=== PATIENT | female | born 1970 | race Caucasian/White ===

== ENCOUNTER 2024-10-05 08:33 | Day surgery (SDC) | payer OTHER ==
[2024-10-02 15:45] LABS: Absolute Basophils 0.1 K/uL (0-0.5); Absolute Eosinophils 0.2 K/uL (0-0.5); Absolute Lymphocytes (CBC) 3.4 K/uL (0.7-4.9); Absolute Monocytes 0.9 K/uL (0.1-1.3); Absolute Neutrophil 6.8 K/uL (1.8-8.0); Basophils % 0.9 % (0-1.3); Hematocrit 43.5 % (36.0-45.0); Lymphocytes % 29.6 % (15.3-44.8); MCH 30.3 pg (27.0-35.0); MCHC 34.4 g/dL (32.0-36.0); MCV 87.9 fL (80-100); MPV 8.2 fL (7.6-11.3); Monocytes % 8.1 % (3.3-12.3); Neutrophils % 59.4 % (41.7-73.7); Nucleated Red Blood Cells % 0.1 % (0-0); Platelets 311 thou/uL (152-406); RBC Red Blood Cell Count 4.95 M/uL (3.86-4.86); Red Cell Distribution Width 13.7 % (12.1-15.2)
--- NOTE | 2024-10-02 15:45 | RAD REPORT ---
Procedure: Chest Pa And Lat (2 Views) HISTORY: Preop for cardiac catheterization COMPARISON: 2016 FINDINGS: The lungs appear clear of acute infiltrate. No significant pleural effusion noted. The heart is normal size. IMPRESSION: No acute abnormality is displayed.
[2024-10-02 15:59] LABS: Anion Gap 5.5 mEq/L (5.0-15.0); Potassium 4.5 mEq/L (3.5-5.1)
[2024-10-02 16:20] LABS: PT Prothrombin Time 10.4 SECONDS (9.4-12.5); Protime INR 0.93
[~2024-10-05 08:33] MED LIST: NA CHLORIDE 0.9% 500 ML ONE
[2024-10-05] MEDS ORDERED: LIDOCAINE 1% 20 ML MDV ONE (08:37)
[2024-10-05] MEDS ORDERED: MIDAZOLAM HCL 2 MG/2 ML INJ ONE (08:37)
[2024-10-05] MEDS ORDERED: ATROPINE SULF 1 MG/10 ML SYR IV ONE (08:37)
[2024-10-05] MEDS ORDERED: HEPARIN 10,000 UNIT/10 ML VIAL IV ONE (08:37)
[2024-10-05] MEDS ORDERED: HEPA 1000U/500MLS 2,000 UNIT/1,000 ML BAG IV ONE (08:37)
[2024-10-05] MEDS ORDERED: FENTANYL CITR 100 MCG/2 ML ONE (08:38)
[2024-10-05] MEDS ORDERED: TICAGRELOR 90 MG TABLET PO ONE (08:38)
[2024-10-05] MEDS ORDERED: ASPIRIN 325 MG TAB ONE (08:38)
[2024-10-05] MEDS ORDERED: CLOPIDOGREL 75 MG TABLET ONE (08:38)
[2024-10-05] MEDS ORDERED: HEPARIN 5000 UNIT/ML 1 ML VIAL ONE (08:38)
[2024-10-05 08:41] VITALS: TEMP 97
[2024-10-05 13:10] VITALS: BP 101/60; O2SAT 97
--- NOTE | 2024-10-06 00:43 | OP ---
Date of Procedure: 10/05/2024 Surgeon: Jonathan Larsen Procedures Performed: 1.Left heart catheterization. 2.Selective coronary angiogram. 3.PCI of the RCA with Synergy 4.0 x 38 mm drug-eluting stent. Indication For Procedure: Chest pain, abnormal stress test. Complications: None. Estimated Blood Loss: Less than 50 cc. Access: Right radial, closed by TR band. Sedation Time: 30 minutes with 2 of Versed and 50 of fentanyl. Description Of Procedure: After risks, benefits, and alternatives were explained to the patient, the patient agreed to proceed with the procedure and signed informed consent. The patient was [facility] b the [facility] to the label sewer, prepped and draped in sterile fashion. Time-out was performed. Sedation was ad ministered. Next, the right radial access was obtained using an ultrasound-guided micropuncture tech nique. Nebo 4 catheter was advanced over the J-wire to the LV cavity. LVEDP was obtained. Pullbac k did not show any gradient. Same catheter was used for selective angiogram of the left and right co ronary systems. Later on, that catheter was exchanged for a JR4 guide. Heparin was administered. A CT was therapeutic. Runthrough wire was passed across the lesion, pre-dilated the lesion with an NC 3.5 mm balloon. Next, Synergy 4.0 x 38 mm drug-eluting stent was placed to close the lesion that is postdilated with an NC 4.5 mm balloon. Final angiogram shows EMILY-3 flow. Wire was removed, cathete r was removed over a J-wire. Sheath was removed. TR band was applied. Hemostasis was achieved and patient was moved back to Recovery in stable condition. Findings: 1.Left main normal. 2.LAD, proximal, mild luminal irregularities, mid 60% disease at the origin of large diagonal and it continues as small diffuse mild luminal irregularities. 3.Diagonal 1 large, mild luminal irregularities. 4.Left circ, small, mild luminal irregularities. 5.RCA, large dominant with mid diffuse 50% to 80% disease, status post PCI. Distal mild luminal irr egularities. 6.RPDA, RPLV, mild luminal irregularities. 7.LVEDP 2 mmHg. Assessment: 1.Significant mid RCA disease, status post PCI with Synergy 4.0 x 38 mm drug-eluting stent. 2.Moderate mid LAD disease, which is diffuse, small artery. Plan: 1.Aspirin 81 mg daily for life. 2.Brilinta 180 x1 was given in the label sewer, we will load with Plavix before discharge and continue Plavix 75 mg daily. ALEXIS/EDILIA Voice ID: [id number] Report ID: [id number]
--- NOTE | 2024-10-06 10:08 | EKG ---
Test Date: 2024-10-02 Test Time: 16:24:42 [employer] Manager: BYRON MEASUREMENT RESULTS: Intervals: Rate: 73 MS: 152 QRSD: 84 QT: 364 QTc: 401 [place]: P: 61 MS: 152 QRS: 34 T: 32 INTERPRETIVE STATEMENTS: Normal sinus rhythm Normal ECG No previous ECG available for comparison Electronically Signed On 10-06-24 10:06:46 LINING SCRUBBER by Jonathan Larsen
== END 2024-10-05 12:30 | disposition home or self-care (01) ==
LOC: CCL 08:33
PROVIDERS: ADMIT Internal Medicine; ATTEND Internal Medicine Interventional Cardiology
DX: I25.110 Atherosclerotic heart disease of native coronary artery with unstable angina pectoris (principal); I10 Essential (primary) hypertension; E78.2 Mixed hyperlipidemia; Z79.899 Other long term (current) drug therapy
CPT/HCPCS: 93005; 85025; 80048; 36415; 85610; 85730; 71046; 92928; 93458; 76937; C1893; Q9967; C1725; J1644; J2003; J2250; J3010; J7040; 99152; 99153; J0461

== ENCOUNTER 2025-01-07 13:07 | Emergency (ER) | payer OTHER ==
--- OUTSIDE RECORDS SUMMARY | 2025-01-07 13:10 | XMS REPORT | Continuity of Care Document ---
Author Name Unknown Address [address] [facility] [address] [place] [id number] [facility] thconnect Address [address] [facility] 1 [address] [place] [address] Care Team Providers Care Pairer Odds Name Role Phone PCP, PATIENT DOES NOT HAVE A Primary Care Physic dahlia Unavailable Vic, Generic Provider Attending Clinician Unavailable Barb Moran RN Attending Clinician Unavailable RICARDO ABRAMS Attending Clinician Unavailable Emma Juan Attending Clinician [phone] Ricardo Abrams DO Attending Clinician [phone] Annita Lira MD Attending Clinician [phone] JOSE ALBERTO ALBERT Attending Clinician Unavailable JOSE ALBERTO ALBERT Attending Clinician Unavailable ANNITA LIRA Admitting Clinician Unavailable Annita Lira MD Admitting Clinician [phone] JOSE ALBERTO ALBERT Admitting Clinician Unavailable Payers Payer Name Policy Type Policy Number Effective Date Expirati on Date Source Problems Condition Name Condition Details Condition Category Status Onset Date Resolution Date Last Treatment Date Treating Clinician Comments Source Sepsis, due to unspecifie d organism, unspecifie d whether acute organ dysfunctio n present Sepsis, due to unspecifie d organism, unspecifie d whether acute organ dysfunctio n present Disease Active 05-23 00:00: 00 [facility] Obesity (BMI 30-39.9) Obesity (BMI 30-39.9) Disease Active 05-23 00:00: 00 [facility] Allergies, Adverse Reactions, Alerts Allergy Name Allergy Type Status Severity Reaction(s) Onset Date Inactive Date Treating Clinician Comments Source NO KNOWN ALLERGIE S Drug Class Active [facility] Social History Social Habit Start Date Stop Date Quantity Comments [facility] 2024-05-25 00:00:00 2024-05-25 00:00:00 [facility] Sex assigned at 1970 00:00:00 1970 00:00:00 [facility] Smoking Status Start Date Stop Date Source Tobacco smoking consumption unknown [facility] Medications Ordered Medication Name Filled Medication Name Start Date Stop Date Current Medication? Ordering Clinician Indication Dosage Frequency Signature (SIG) Comments Components Source HYDROcodone -acetaminop hen 10-325 mg tablet 05-25 13:22: 48 Yes 1{tbl} Take 1 tablet by mouth every 6 (six) hours as needed. [facility] baclofen 5 mg tablet 05-25 13:22: 48 Yes 10mg Take 2 tablets by mouth in the morning and 2 tablets in the evening. [facility] vitamin C with althea hips (VITAMIN C) 1,000 mg tablet 05-25 13:22: 48 Yes 1000mg Take 1 tablet by mouth in the morning. [facility] montelukast 10 mg tablet 05-25 13:22: 48 Yes 10mg Take 1 tablet by mouth in the morning. [facility] cholecalcif jazmyne, vitamin D3, (VITAMIN D3 ORAL) 05-25 13:22: 48 05-25 00:00 :00 No 20mg Take by mouth daily. [facility] hydroCHLORO thiazide 25 mg tablet 05-25 11:36: 11 05-25 00:00 :00 No 25mg Take 1 tablet by mouth in the morning. [facility] atorvastati n 20 mg tablet 05-25 00:00: 00 06-25 04:59 :00 No [id number] 20mg Take 1 tablet by mouth at bedtime for 30 days. [facility] DULoxetine 60 mg capsule 05-25 00:00: 00 06-25 04:59 :00 No [id number] 60mg Take 1 capsule by mouth in the morning for 30 days. [facility] HYDROcodone -acetaminop hen 10-325 mg tablet 05-25 00:00: 00 06-02 04:59 :00 No [id number] 1{tbl} Take 1 tablet by mouth every 6 (six) hours as needed for Pain (scale 7-10) for up to 7 days. Indication s: acute pain [facility] levoFLOXaci n 750 mg tablet 05-25 00:00: 00 05-30 04:59 :00 No [id number] 750mg Take 1 tablet by mouth every 24 (twenty-fo ur) hours for 4 days. [facility] HYDROcodone -acetaminop hen (NORCO) 10-325 mg tablet 1 tablet 05-24 20:16: 47 Yes 1{tbl} 1 tablet, Oral, Q6HPRN, Starting on Sat05/24/24 at 1516, Until Discontinu ed, Routine, Pain (scale 7-10) [facility] loperamide (IMODIUM A-D) capsule 2 mg 05-24 15:42: 31 Yes 2mg 2 mg, Oral, Q4HPRN, Starting on Sat05/24/24 at 1042, Until Discontinu ed, Routine, Diarrhea [facility] azithromyci n (ZITHROMAX) 500 mg in NaCl 0.9% (NS) 250 mL VIAL-MATE IV piggyback 05-24 05:30: 00 05-25 05:43 :00 No 500mg 500 mg, IV Piggyback, Q24H ABX, 2 doses, First dose (after last reorder) on Sat05/24/24 at 0030, Last dose on Sat05/25/24 at 0030, Administer over 60 Minutes, 250 mL, Reason for Anti-Infec tive: Documented Infection, Documented Infection Site: Respirator y, Duration of Therapy: Once (ED) [facility] cefTRIAXone (ROCEPHIN) 1,000 mg in NaCl 0.9% (NS) 100 mL MINI-BAG 05-24 04:00: 00 05-29 03:59 :00 No 1000mg 1,000 mg, IV Piggyback, Q24H ABX, 5 doses, First dose (after last reorder) on Sat05/23/24 at 2300, Last dose on Sat05/27/24 at 2300, Administer over 30 Minutes, 100 mL, Reason for Anti-Infec tive: Empiric Therapy for Suspected Infection, Empiric Therapy Site: Urine, Duration of therapy: Once (ED) [facility] atorvastati n (LIPITOR) tablet 20 mg 05-24 02:00: 00 Yes 20mg 20 mg, Oral, QHS, First dose on 05/23/24 at 2100, Until Discontinu ed [facility] enoxaparin (LOVENOX) injection 40 mg 05-23 22:00: 00 Yes 40mg 40 mg, Subcutaneo us, DAILY, First dose on Sat05/23/24 at 1700, Until Discontinu ed, Routine [facility] ondansetron (ZOFRAN (PF)) injection 4 mg 05-23 19:41: 40 Yes 4mg 4 mg, Slow IV Push, Q6HPRN, Nausea and Vomiting (N/V), Starting on Sat05/23/24 at 1441, Doses of ondansetro n 16 mg and above need to be administer ed via IV piggyback. For Dose >=24mg ECG monitoring is advisable. [facility] acetaminoph en (TYLENOL) tablet 1,000 mg 05-23 19:09: 44 Yes 1000mg 1,000 mg, Oral, Q8HPRN, Starting on Sat05/23/24 at 1409, Until Discontinu ed, Routine, Pain (scale 1-3), Temp > 38 C [facility] DULoxetine (CYMBALTA) capsule 60 mg 05-23 14:00: 00 Yes 60mg 60 mg, Oral, DAILY, First dose on Sat05/23/24 at 0900, Until Discontinu ed [facility] midodrine (PROAMATINE ) tablet 10 mg 05-23 13:44: 43 05-24 20:38 :05 No 10mg 10 mg, Oral, TID, First dose on 05/23/24 at 1400, Until Discontinu ed, Routine [facility] NaCl 0.9% (NS) IV infusion 1,000 mL 05-23 12:45: 00 05-24 15:44 :04 No 1000mL at 125 mL/hr, IV Infusion, CONTINUOUS , Starting on 05/23/24 at 0745, Until 05/24/24 at 1044, Routine [facility] KCL (KLOR-CON M20) tablet 40 mEq 05-23 12:15: 00 05-23 11:24 :00 No 40meq 40 mEq, Oral, ONCE, 1 dose, On 05/23/24 at 0715, Routine [facility] NaCl 0.9% (NS) IV infusion 1,000 mL 05-23 12:15: 00 05-23 12:38 :23 No 1000mL at 125 mL/hr, IV Infusion, CONTINUOUS , Starting on 05/23/24 at 0715, Until 05/23/24 at 0738, Routine [facility] NaCl 0.9% (NS) bolus infusion 1,000 mL 05-23 07:00: 00 05-23 11:51 :00 No 1000mL at 999 mL/hr, 1,000 mL, IV Infusion, ONCE, 1 dose, On 05/23/24 at 0200, STAT [facility] ipratropium -albuteroL (DUONEB) 0.5 mg-3 mg(2.5 mg base)/3 mL nebulizer solution 3 mL 05-23 06:15: 00 05-23 05:24 :00 No 3mL 3 mL, Inhalation , ONCE, 1 dose, On 05/23/24 at 0115, Routine [facility] acetaminoph en (TYLENOL) tablet 1,000 mg 05-23 06:00: 00 05-23 05:57 :00 No 1000mg 1,000 mg, Oral, ONCE, 1 dose, On 05/23/24 at 0100, Routine [facility] KCL (KLOR-CON M20) tablet 40 mEq 05-23 05:30: 00 05-23 05:03 :00 No 40meq 40 mEq, Oral, ONCE, 1 dose, On Sat05/23/24 at 0030, Routine [facility] azithromyci n (ZITHROMAX) 500 mg in NaCl 0.9% (NS) 250 mL VIAL-MATE IV piggyback 05-23 05:15: 00 05-23 06:33 :00 No 500mg 500 mg, IV Piggyback, ONCE, 1 dose, On Sat05/23/24 at 0015, Administer over 60 Minutes, 250 mL, Reason for Anti-Infec tive: Documented Infection, Documented Infection Site: Respirator y, Duration of Therapy: Once (ED) [facility] NaCl 0.9% (NS) bolus infusion 1,000 mL 05-23 05:00: 00 05-23 11:50 :00 No 1000mL at 999 mL/hr, 1,000 mL, IV Infusion, ONCE, 1 dose, On Sat05/23/24 at 0000, STAT [facility] ibuprofen (IBU) tablet 800 mg 05-23 04:00: 00 05-23 04:24 :00 No 800mg 800 mg, Oral, ONCE, 1 dose, On Sat05/22/24 at 2300, JENN [facility] NaCl 0.9% (NS) bolus infusion 1,000 mL 05-23 04:00: 00 05-23 06:00 :00 No 1000mL at 999 mL/hr, 1,000 mL, IV Infusion, ONCE, 1 dose, On Sat05/22/24 at 2300, STAT [facility] cefTRIAXone (ROCEPHIN) 1,000 mg in NaCl 0.9% (NS) 100 mL MINI-BAG 05-23 03:15: 00 05-23 05:30 :00 No 1000mg 1,000 mg, IV Piggyback, ONCE, 1 dose, On Sat05/22/24 at 2215, Administer over 30 Minutes, 100 mL, Reason for Anti-Infec tive: Empiric Therapy for Suspected Infection, Empiric Therapy Site: Urine, Duration of therapy: Once (ED) [facility] HYDROcodone -acetaminop hen (NORCO) 10-325 mg tablet 1 tablet 05-20 16:30: 00 05-20 16:12 :00 No 1{tbl} 1 tablet, Oral, ONCE, 1 dose, On Sat05/20/24 at 1130, Routine [facility] Vital Signs Vital Name Observation Time Observation Value Comments S ource Systolic blood pressure 2024-05-25 17:02:00 127 mm[Hg] [facility] Diastolic blood pressure 2024-05-25 17:02:00 99 mm[Hg] [facility] Body temperature 2024-05-25 17:02:00 36.72 [facility] Oxygen saturation in Arterial blood by Pulse oximetry 2024-05-25 13:00:00 92 /min [facility] Heart rate 2024-05-25 13:00:00 89 /min [facility] Respiratory rate 2024-05-25 13:00:00 20 /min [facility] Body weight 2024-05-25 09:00:00 94.983 kg [facility] BMI 2024-05-25 09:00:00 33.80 kg/m2 [facility] Body height 2024-05-23 14:33:00 167.6 cm [facility] Systolic blood pressure 2024-05-20 15:14:00 113 mm[Hg] [facility] Diastolic blood pressure 2024-05-20 15:14:00 74 mm[Hg] [facility] Heart rate 2024-05-20 15:14:00 124 /min [facility] Body temperature 2024-05-20 15:14:00 37.61 [facility] Body height 2024-05-20 15:14:00 160 cm [facility] Body weight 2024-05-20 15:14:00 95.709 kg [facility] BMI 2024-05-20 15:14:00 37.38 kg/m2 [facility] Oxygen saturation in Arterial blood by Pulse oximetry 2024-05-20 15:14:00 94 /min [facility] Procedures Procedure Date / Time Performed Performing Clinician Source BASIC METABOLIC PANEL (NA, K, CL, CO2, GLUCOSE, BUN, CREATININE, CA) 2024-05-25 14:28:00 Ricardo Abrams [facility] CBC WITH DIFF 2024-05-25 14:28:00 Ricardo Abrams [facility] CORTISOL AM 2024-05-23 14:12:00 Ricardo Abrams [facility] PROCALCITONIN 2024-05-23 14:12:00 Ricardo Abrams [facility] LACTIC ACID WHOLE BLOOD 2024-05-23 07:29:00 Emma Gallardo [facility] THYROID STIMULATING HORMONE 2024-05-23 07:28:00 Ricardo Abrams [facility] BASIC METABOLIC PANEL (NA, K, CL, CO2, GLUCOSE, BUN, CREATININE, CA) 2024-05-23 07:28:00 Damaso [facility] CBC WITH DIFF 2024-05-23 07:28:00 [facility] MRSA / MSSA SCREEN BY PCRTRAVIS 2024-05-23 06:57:00 Damaso [facility] HB ECG ROUTINE & RHYTHM STRIP 2024-05-23 04:34:07 Emma Gallardo [facility] XR CHEST 1 VW 2024-05-23 04:15:00 Emma Gallardo [facility] LACTIC ACID WHOLE BLOOD 2024-05-23 03:44:00 Emma [facility]ardo [facility] BLOOD CULTURE SCREEN 2024-05-23 03:43:00 Emma Gallardo [facility] TROPONIN I 2024-05-23 03:41:00 Emma Gallardo [facility] COMP. METABOLIC PANEL ([id number]) 2024-05-23 03:41:00 Emma Gallardo [facility] CBC WITH DIFF 2024-05-23 03:41:00 Emma Gallardo [facility] THROAT CULTURE 2024-05-23 03:41:00 Emma Gallardo [facility] RAPID STREP SCREEN FOR GROUP A 2024-05-23 03:41:00 Emma Gallardo [facility] INFLUENZA A/B RSV COVID NAAT 2024-05-23 03:41:00 Emma Gallardo [facility] LAB ONLY COVID INTERPRETATION 2024-05-23 03:41:00 Emma Gallardo [facility] BLOOD CULTURE SCREEN 2024-05-23 03:28:00 Emma Gallardo [facility] URINALYSIS 2024-05-23 03:27:00 Emma Gallardo [facility] URINE CULTURE 2024-05-23 03:27:00 Emma Gallardo [facility] COMP. METABOLIC PANEL ([id number]) 2024-05-20 16:08:00 Singer [facility] CBC WITH DIFF 2024-05-20 16:08:[facility]AST 2024-05-20 15:42:46 Helix [facility] Encounters Start Date/Time End Date/Time Encounter Type Admission Type Attending Clinicians Care Facility Care Department Encounter ID Source 2024-05-27 00:00:00 2024-05-27 11:23:01 Letter (Out) Campaigns, Generic Provider [facility] 1..840.114 [id number] [id number] [id number] [facility] 2024-05-26 00:00:00 2024-05-26 10:31:27 Transition of Care Barb Moran 1..840.114 350.1.13.10 [id number] [id number] [facility] 2024-05-22 21:54:00 2024-05-25 13:06:00 Inpatient X RICARDO ABRAMS [facility] [id number] [facility] 2024-05-22 21:54:00 2024-05-25 13:06:00 Hospital Encounter Emma Gallardojuwan Abrams, Ricardo LiraAnnita [facility] [id number] [id number] [id number] [facility] 2024-05-20 10:18:00 2024-05-20 14:00:00 Emergency X JOSE ALBERTO ALBERT, [facility] ERT [id number] [facility] 2024-05-20 10:18:00 2024-05-20 14:00:00 Emergency Jose Alberto Albert [facility] 1..840.114 [id number] [id number] [id number] [facility] Results Test Description Test Time Test Comments Results Result Co mments Source [facility]2024-07-13 19:33:43* Test Item Value Reference Range Interpretation Comme nts Procalcitonin (test code = 8493106934) 4.51 ng/mL <=0.07 H STEPHON (test code = STEPHON) INTERPRETATION OF PROCALCITONIN RESULTS IN ADULTS >= 18 YEARS OF AGE Initiation and discontinuation of antibiotics on patients with suspected or confirmed Lower Respiratory Tract Infection in Adults >= 18 years of age. + +-------- --------+ + -----+|Procalcitonin |Interpretation ?|Antibiotic ? ? |Considerations ? |ng/mL ? | ?|recommendation | ? + +-------- --------+ + -----+| <0.1 ? | Bacterial ? ? ?| Strongly ? ? ?| ? | ?| infection very | discouraged ? | Overruling: ? | ?| unlikely ? ? ? | ? | ? Clinically unstable ? ? ? + +-------- --------+ + ? High risk for adverse ? ? | <0.25 ?| Bacterial ? ? ?| Discouraged ? | ? outcome ? | ?| infection ? ? ?| ? | ? SEE IMPORTANT NOTE ?| ?| unlikely ? ? ? | ? | ? + +-------- --------+ + -----+| >=0.25 ? ? ? | Bacterial ? ? ?| Encouraged ? ?| ? | ?| infection ? ? ?| ? | ? | ?| likely ? | ? | Consider treatment failure ?+ +------- ---------+ -+ if levels does not decrease | >0.5 ? | Bacterial ? ? ?| Strongly ? ? ?| appropriately ? | ?| infection very | encouraged ? ?| ? | ?| likely ? | ? | ? + +-------- --------+ + -----+ Discontinuation of antibiotics in high-acuity patients with suspected or confirmed sepsis in Adults >= 18 years of age. + +-------- --------+ + -----+|Procalcitonin |Interpretation ?|Antibiotic ? ? |Considerations ? |ng/mL ? | ?|recommendation | ? + +-------- --------+ + -----+| <0.25 ?| Bacterial ? ? ?| Strongly ? ? ?| ? | ?| infection very | discouraged ? | Overruling: ? | ?| unlikely ? ? ? | ? | ? Clinically unstable ? ? ? + +-------- --------+ + ? High risk for adverse ? ? | <0.5 or drop | Bacterial ? ? ?| Discouraged ? | ? outcome ? | >80% from ? ?| infection ? ? ?| ? | ? SEE IMPORTANT NOTE ?| highest PCT ?| unlikely ? ? ? | ? | ? | level ?| ?| ? | ? + +-------- --------+ + -----+| >=0.5 ?| Bacterial ? ? ?| Encouraged ? ?| ? | ?| infection ? ? ?| ? | ? | ?| likely ? | ? | Consider treatment failure ?+ +------- ---------+ -+ if levels does not decrease | >1.0 ? | Bacterial ? ? ?| Strongly ? ? ?| appropriately ? | ?| infection very | encouraged ? ?| ? | ?| likely ? | ? | ? + +-------- --------+ + -----+ Percentage of drop of Procalcitonin calculation for Discontinuation of antibiotics in high-acuity patients with suspected or confirmed sepsis in Adults >= 18 years of age. ? Procalcitonin highest{}-Procalcitonin current{}Delta Procalcitonin = x100% ? Procalcitonin current {} IMPORTANT NOTE: Procalcitonin may be elevated without bacterial infection by physiologic stress related to trauma, echavarria, chronic dialysis, metastatic cancer, surgery in the past seven days, malaria, some fungal infections, and some forms of vasculitis. The interpretation algorithm may not apply to patients with immunosuppression (equivalent of >10 mg of prednisone daily), HIV with CD4 cell count < 350 cells/mm3, active malignancy on systemic chemotherapy, solid organ transplant or hematopoietic stem cell transplantation, or hospital acquired pneumonia. Additionally, some clinical trials of procalcitonin have excluded patients with shock requiring vasopressor use, acute respiratory failure requiring mechanical ventilation, or those with known lung abscess/empyema. For further information please refer to:[email or web address] Lab Interpretation (test code = 80918-5) [facility] HospitalThyroid Stimulating [id number] 15:33:06 * Test Item Value Reference Range Interpretation Comme nts TSH (test code = 5137152355) 0.91 0.45-4.70 Biotin has been reported to cause a negative bias, interpret results relative to patient's use of biotin. Lab Interpretation (test code = 20482-7) [facility] with [id number] 08:47:48* Test Item Value Reference Range Interpretation Comme nts WBC (test code = 6690-2) 35.14 4.30-11.10 H RBC (test code = 789-8) 3.81 3.93-5.25 L HGB (test code = 718-7) 11.6 g/dL 11.6-15.0 HCT (test code = 4544-3) 34.0 % 35.7-45.2 L MCV (test code = 787-2) 89.2 fL 80.6-95.5 MCH (test code = 785-6) 30.4 pg 25.9-32.8 MCHC (test code = 786-4) 34.1 g/dL 31.6-35.1 RDW-SD (test code = 29305-3) 45.2 fL 39.0-49.9 RDW-CV (test code = 788-0) 13.8 % 12.0-15.5 PLT (test code = 777-3) 199 166-358 MPV (test code = 34309-0) 11.5 fL 9.5-12.9 NRBC/100 WBC (test code = 3636025459) 0.0 0.0-10.0 NRBC x10^3 (test code = 0537373803) See_Comment [Automated message] The system which generated this result transmitted reference range: 10*3/?L. The reference range was not used to interpret this result as normal/abnormal. SEG % (test code = 73606-5) 66 % 33-76 BAND % (test code = 27003-6) 18 % 0-1 H LYMPH % (test code = 61424-0) 4 % 14-54 L REACT LYMPH % (test code = 4896729217) 2 % MONO % (test code = 91167-4) 10 % 0-4 H ANC (test code = 753-4) 29.52 10*3/uL 1.88-7.09 H PLT ESTIMATE (test code = 9317-9) Normal Normal Lab Interpretation (test code = 74268-1) Abnormal [facility] Metabolic Panel (NA, K, CL, CO2, Glucose, BUN, Creatinine, CA)2024-05-23 08:30:00* Test Item Value Reference Range Interpretation Comme nts NA (test code = 1161129557) 134 mmol/L 135-145 L K (test code = 4725885834) 3.2 mmol/L 3.5-5.0 L CL (test code = 9746973704) 106 mmol/L 98-108 CO2 TOTAL (test code = 4645949211) 23 mmol/L 23-31 AGAP (test code = 4063594095) 5 2-16 BUN (test code = 6984783069) 17 mg/dL 7-23 GLUCOSE (test code = 5006098982) 128 mg/dL 70-110 H CREATININE (test code = 2160-0) 0.58 mg/dL 0.50-1.04 CALCIUM (test code = 6494913979) 7.7 mg/dL 8.6-10.6 L eGFR (test code = 06872-7) 107.0 mL/min/1.73m2 CKD-EPI eGFR (2020). Assuming creatinine has been stable day-to-day for at least three months, the eGFR indicates Category G1 (>= 90 mL/min/1.73 m2) Lab Interpretation (test code = 58300-9) [facility] HospitalLactic Acid Whole [id number] 07:39:11* Test Item Value Reference Range Interpretation Comme nts LACTIC ACID (test code = 2087780248) 1.56 mmol/L 0.50-2.20 Lab Interpretation (test cod e = 67519-5) [facility] HospitalTroponin [id number] 05:20:52* Test Item Value Reference Range Interpretation Comme nts TROPONIN I (test code = 6785702499) 0.003 ng/mL <=0.034 STEPHON (test code = STEPHON) Reference (Normal) Range (defined by the 99th percentile reference limit): <= 0.034 ng/mL Note: Cardiac troponin begins to rise 3-4 hours after the onset of ischemia. Repeat in 4-6 hours if the sample was drawn within 3-4 hours of the onset of the symptom and found normal. Diagnosis of myocardial injury is made with acute changes in cTn concentrations with at least one serial sample above the 99th percentile upper reference limit (URL), taken together with the patient's clinical presentation. Biotin has been reported to cause a negative bias, interpret results relative to patient's use of biotin. Lab Interpretation (test code = 99449-2) [facility] HospitalXR CHEST 1 [id number] 05:15:16Ordering physician: Emma GALLARDO Indication: Fever Comparison: None Technical quality: Adequate Findings: Single AP view of the chest. The cardiopericardial silhouette ismoderately enlarged. There is hazy opacity at the right lung base with asmall right pleural effusion. The visualized bony thorax is intact.[facility] HospitalCb with [id number] 04:52:10* Test Item Value Reference Range Interpretation Comme nts WBC (test code = 6690-2) 34.70 4.30-11.10 H RBC (test code = 789-8) 4.80 3.93-5.25 HGB (test code = 718-7) 14.5 g/dL 11.6-15.0 HCT (test code = 4544-3) 42.4 % 35.7-45.2 MCV (test code = 787-2) 88.3 fL 80.6-95.5 MCH (test code = 785-6) 30.2 pg 25.9-32.8 MCHC (test code = 786-4) 34.2 g/dL 31.6-35.1 RDW-SD (test code = 06414-6) 44.2 fL 39.0-49.9 RDW-CV (test code = 788-0) 13.6 % 12.0-15.5 PLT (test code = 777-3) 230 166-358 MPV (test code = 19245-0) 10.9 fL 9.5-12.9 NRBC/100 WBC (test code = 9906894930) 0.0 0.0-10.0 NRBC x10^3 (test code = 9236652411) See_Comment [Automated message] The system which generated this result transmitted reference range: 10*3/?L. The reference range was not used to interpret this result as normal/abnormal. GRAN MAT (NEUT) % (test code = 770-8) 88.6 % IMM GRAN % (test code = 4616013122) 2.00 % LYMPH % (test code = 736-9) 1.8 % MONO % (test code = 5905-5) 7.4 % EOS % (test code = 713-8) 0.0 % BASO % (test code = 706-2) 0.2 % GRAN MAT x10^3(ANC) (test code = 6867581960) 30.78 10*3/uL 1.88-7.09 H IMM GRAN x10^3 (test code = 9356335275) 0.68 10*3/uL 0.00-0.06 H LYMPH x10^3 (test code = 731-0) 0.61 10*3/uL 1.32-3.29 L MONO x10^3 (test code = 742-7) 2.56 10*3/uL 0.33-0.92 H EOS x10^3 (test code = 711-2) 0.03-0.39 L BASO x10^3 (test code = 704-7) 0.06 10*3/uL 0.01-0.07 REACT LYMPHS (test code = 1994454303) Rare Lab Interpretation (test code = 21011-2) [facility] HospitalComp. Metabolic Panel (72358)2024-05-23 04:21:26* Test Item Value Reference Range Interpretation Comme nts NA (test code = 9935369180) 133 mmol/L 135-145 L K (test code = 2539515090) 3.1 mmol/L 3.5-5.0 L CL (test code = 0050323347) 97 mmol/L 98-108 L CO2 TOTAL (test code = 8479716663) 26 mmol/L 23-31 AGAP (test code = 2576799918) 10 2-16 BUN (test code = 4911793844) 23 mg/dL 7-23 GLUCOSE (test code = 8853831352) 190 mg/dL 70-110 H CREATININE (test code = 2160-0) 0.63 mg/dL 0.50-1.04 TOTAL BILI (test code = 9986741018) 1.1 mg/dL 0.1-1.1 CALCIUM (test code = 8989124345) 9.4 mg/dL 8.6-10.6 T PROTEIN (test code = 3039643564) 7.7 g/dL 6.3-8.2 ALBUMIN (test code = 5868202468) 4.0 g/dL 3.5-5.0 ALK PHOS (test code = 0274318929) 82 U/L 34-122 ALTv (test code = 1742-6) 27 U/L 5-35 AST(SGOT) (test code = 7382060668) 36 U/L 13-40 eGFR (test code = 44198-2) 104.9 mL/min/1.73m2 CKD-EPI eGFR (2020). Assuming creatinine has been stable day-to-day for at least three months, the eGFR indicates Category G1 (>= 90 mL/min/1.73 m2) Lab Interpretation (test code = 15343-1) [facility] Whole [id number] 03:51:38* Test Item Value Reference Range Interpretation Comme nts LACTIC ACID (test code = 1816003192) 3.15 mmol/L 0.50-2.20 H Lab Interpretation (test cod e = 32266-6) [facility] with [id number] 17:15:56* Test Item Value Reference Range Interpretation Comme nts WBC (test code = 6690-2) 25.93 4.30-11.10 H RBC (test code = 789-8) 5.32 3.93-5.25 H HGB (test code = 718-7) 16.3 g/dL 11.6-15.0 H HCT (test code = 4544-3) 47.6 % 35.7-45.2 H MCV (test code = 787-2) 89.5 fL 80.6-95.5 MCH (test code = 785-6) 30.6 pg 25.9-32.8 MCHC (test code = 786-4) 34.2 g/dL 31.6-35.1 RDW-SD (test code = 31844-3) 44.0 fL 39.0-49.9 RDW-CV (test code = 788-0) 13.6 % 12.0-15.5 PLT (test code = 777-3) 318 166-358 MPV (test code = 00506-3) 10.9 fL 9.5-12.9 NRBC/100 WBC (test code = 2808344401) 0.0 0.0-10.0 NRBC x10^3 (test code = 2531227260) See_Comment [Automated message] The system which generated this result transmitted reference range: 10*3/?L. The reference range was not used to interpret this result as normal/abnormal. GRAN MAT (NEUT) % (test code = 770-8) 87.1 % IMM GRAN % (test code = 2859994938) 1.00 % LYMPH % (test code = 736-9) 3.9 % MONO % (test code = 5905-5) 7.4 % EOS % (test code = 713-8) 0.2 % BASO % (test code = 706-2) 0.4 % GRAN MAT x10^3(ANC) (test code = 9900462359) 22.57 10*3/uL 1.88-7.09 H IMM GRAN x10^3 (test code = 1866449108) 0.26 10*3/uL 0.00-0.06 H LYMPH x10^3 (test code = 731-0) 1.02 10*3/uL 1.32-3.29 L MONO x10^3 (test code = 742-7) 1.93 10*3/uL 0.33-0.92 H EOS x10^3 (test code = 711-2) 0.05 10*3/uL 0.03-0.39 BASO x10^3 (test code = 704-7) 0.10 10*3/uL 0.01-0.07 H BANDS (test code = 8614866741) Increased A Lab Interpretation (test code = 72989-7) [facility] Hospital[facility]. Metabolic Panel ([id number])2024-05-20 16:46:24* Test Item Value Reference Range Interpretation Comme nts NA (test code = 5894932389) 138 mmol/L 135-145 K (test code = 7209228861) 3.6 mmol/L 3.5-5.0 CL (test code = 3993298683) 100 mmol/L 98-108 CO2 TOTAL (test code = 3705208025) 25 mmol/L 23-31 AGAP (test code = 2356054661) 13 2-16 BUN (test code = 8571512638) 16 mg/dL 7-23 GLUCOSE (test code = 5476042150) 111 mg/dL 70-110 H CREATININE (test code = 2160-0) 0.58 mg/dL 0.50-1.04 TOTAL BILI (test code = 4066813256) 0.7 mg/dL 0.1-1.1 CALCIUM (test code = 2686373508) 9.7 mg/dL 8.6-10.6 T PROTEIN (test code = 6229525485) 8.5 g/dL 6.3-8.2 H ALBUMIN (test code = 6980542105) 5.0 g/dL 3.5-5.0 ALK PHOS (test code = 2539225164) 82 U/L 34-122 ALTv (test code = 1742-6) 14 U/L 5-35 AST(SGOT) (test code = 7880070213) 26 U/L 13-40 eGFR (test code = 44667-6) 107.0 mL/min/1.73m2 CKD-EPI eGFR (2020). Assuming creatinine has been stable day-to-day for at least three months, the eGFR indicates Category G1 (>= 90 mL/min/1.73 m2) Lab Interpretation (test code = 51330-9) [facility] PELVIS WO [id number] 15:59:55CT Abdomen and Pelvis without contrast. CLINICAL HISTORY: ?FLANK PAIN. R/O RENAL STONES. TECHNIQUE:Multidetector helical CT acquisition was obtained from the lungbases to the greater trochanters without oral and IV contrast. ?The imageswere reviewed in lung, bone, and soft tissue windows. FINDINGS: ?Absence of intravenous contrast limits evaluation of the solidorgans. Evaluation of the bowel is also limited by lack of oral contrast. Lower lungs: No pleural effusion or pericardial effusion. Small hiatalhernia. A small fat-containing medial posterior left diaphragmatic herniacontaining fat. Liver, Gallbladder and Spleen: S/P cholecystectomy. Liver is enlarged,measuring 21 cm with mild diffuse steatosis suspected. Spleen isapproximately 11.8 x 4 cm in size. Biliary duct and the pancreatic ductappear of normal size. Peritoneum: ?No free air or free fluid. No lymphadenopathy. Pancreas and Adrenals: ?Unremarkable pancreas and adrenal glands. Kidneys and Ureters: ?Focal radiopacities seen in the lower pole calyx ofthe right kidney without a discrete well-formed stone seen in eitherkidneys. No hydroureter or hydronephrosis. ? Vessels: Atherosclerosis. No aortic aneurysm. However, focal ectasia ofinfrarenal segment of the abdominal aorta are noted with maximum diameterof only 2.3 cm. Aorta proximal to the ectatic segment is 16 to 17 mm indiameter. Retroperitoneum: No abnormal fluid or lymphadenopathy. Bowel: ?No acute findings. Normal appendix is visualized. Bladder ?and Reproductive Organs: S/P hysterectomy. Thickened bladder wallscould be a sign of chronic cystitis. Calcifications in the fpzwvxssaohs-dz-sph and adjacent to vaginal cuff could be chronic soft of theappendix or asmall calcified hematoma, likely of no clinical significance. Bones: ?Grade 1 spondylolisthesis of L5-S1 with postoperative changes ofdorsal interbody fusion and discectomy. L4 spondylolysis with hypertrophicfacet arthritis, prominent Schmorl's nodes in the lower thoracic and upperlumbar vertebral endplates noted. Moderate left hip joint degenerativeosteoarthritis noted. Slightly less severe changes of degenerativearthritis are also seen in the right hip joint. Soft tissues: Unremarkable. CONCLUSION:1. No kidney stones or hydronephrosis. Thickened urinary bladder wallscould be a sign of chronic cystitis. Please correlate with history.2. S/P cholecystectomy and hysterectomy.3. Small hiatal hernia. [facility]at[facility]galy[facility] Physical Notes Date/Time Note Provider Source 2024-05-23 01:10:56 MEDICINE [facility] ADMIT H&P Date of Service: 05/23/2024 CHIEF COMPLAINT: fever, chills, body aches Subjective History of Present Illness 53 yo female with pmh of depression, HTN, HLD who presents to the ED secondary to fever, chills, body aches for the past week. Associated symptoms: nonproductive cough, headache, rhinorrhea, sore throat, decreased oral intake, nausea, vomiting, diarrhea, -nicotine ROS: + PAST MEDICAL HISTORY HTN HLD Depression Past Surgical History Neck surgery Back surgery Past Family History Noncontributory ALLERGIES No Known Allergies MEDICATIONS No current facility-administered medications on file prior to encounter. Current Outpatient Medications on File Prior to Encounter Medication Sig Dispense Refill atorvastatin calcium (ATORVASTATIN ORAL) Take 20 mg by mouth at bedtime. baclofen 5 mg tablet Take 2 tablets by mouth in the morning and 2 tablets in the evening. cholecalciferol, vitamin D3, (VITAMIN D3 ORAL) Take by mouth daily. duloxetine HCl (DULOXETINE ORAL) Take 60 mg by mouth in the morning. hydroCHLOROthiazide 25 mg tablet Take 1 tablet by mouth in the morning. HYDROcodone-acetaminophen 10-325 mg tablet Take 1 tablet by mouth every 6 (six) hours as needed. MELOXICAM ORAL Take by mouth daily. vitamin C with althea hips (VITAMIN C) 1,000 mg tablet Take 1 tablet by mouth in the morning. cyanocobalamin, vitamin B-12, (VITAMIN B-12 ORAL) Take by mouth daily. SOCIAL HISTORY Social History Socioeconomic History Marital status: REVIEW OF SYSTEMS Review of Systems Objective PHYSICAL EXAMINATION Vitals: 05/23/24 0200 05/23/24 0300 05/23/24 0402 05/23/24 0502 BP: (!) 83/53 (!) 89/57 92/62 91/65 Pulse: 111 101 97 91 Resp: 26 20 22 Temp: TempSrc: SpO2: (!) 87% (!) 89% Weight: Height: Physical Exam LABS/IMAGING - reviewed Ordering physician: Emma GALLARDO Indication: Fever Comparison: None Technical quality: Adequate Findings: Single AP view of the chest. The cardiopericardial silhouette is moderately enlarged. There is hazy opacity at the right lung base with a small right pleural effusion. The visualized bony thorax is intact. IMPRESSION Impression: Hazy opacity at the right lung base with a small right pleural effusion, concerning for pneumonia. Follow-up is recommended to ensure resolution. Moderate cardiomegaly. Assessment & Plan Mirella Quinonez is a 53 year old female with PMH as listed above, admitted to the hospital with: 1. Acute respiratory distress: secondary to underlying pulmonic infection -- Treat underlying condition -- Oxygen supplementation as needed. 2. Sepsis/Pneumonia: noted on imaging. -- Oxygen supplementation as needed -- Continue antibiotics -- Anti-tussive and anti-inflammatory as needed -- Breathing treatment as needed 3. Hypotension: likely due to septic shock in the setting of dehydration -- Will continue with fluid hydration as it is being corrected -- Will start midodrine -- will start AM cortisol 4. Hypokalemia: -- Will replace potassium 5. Depression: -- Will continue with Cymbalta 6. Current smoker: spoke for greater than 3 minutes about smoking cessation. At this time, patient refuse smoking cessation therapy. Prophylaxis: DVT- enoxaparin Code Status: Full Code [facility] - Health Notes Date/Time Note Provider Source 2024-05-26 10:30:51 TRANSITIONAL CARE MANAGEMENT ASSESSMENT 05/26/2024 Mirella Quinonez [id number] Mirella Quinonez is a 53 year old /White female was admitted on 05/22/24 to [facility] ICU. She was discharged on 05/25/24 with discharge disposition of HR- Routine Discharge. Admitting Physician: Annita Lira Discharge Diagnosis:Sepsis, due to unspecified organism, unspecified whether acute organ dysfunction present No linked episodes TCM Fgy-[id number]-jt-face outreach documentation: Discharge Assessment Chart Assessed: 05/26/24 TCM Outreach Completed: 05/26/24 Do you have a few minutes to speak with me about how you are doing at home?: Yes (Pt reports doing "Good".) Discharge Instructions Do you understand your at-home instructions?: Yes Medications Have you filled your prescriptions and do you have them in your home? : Yes Do you know how to take your medications?: Yes Supplies Did you receive applicable home medical supplies/equipment?: N/A Follow Up Appointment Has a follow up appointment been scheduled?: No May I assist with scheduling this appointment?: Patient has outside PCP Do you have any questions about your follow up appointments?: No Are you able to get to your appointment? Who will be taking you?: Yes Home Health Assistance Has the home health nurse contacted you since you've been home?: N/A Survey - Recognition Is there anything you would like to share about your recent hospitalization, or anyone you would like to recognize?: No Do you have any suggestions for improvement?: No Do you have any other questions or concerns at this time?: No [facility] 2024-05-25 08:51:07 Problem: Discharge Planning Goal: Adequate for discharge Outcome: Progressing as expected Goal: Effective communication Outcome: Progressing as expected Problem: Falls, Risk of Goal: Absence of falls Outcome: Progressing as expected Problem: Infection, Risk of or Actual Goal: Absence of infection Outcome: Progressing as expected Problem: Mental Status - Impaired, Risk of Goal: Mental status restored to baseline Outcome: Progressing as expected Goal: Absence of physical injury Outcome: Progressing as expected Problem: Pain Goal: Control of pain at or below patient's documented comfort goal Outcome: Progressing as expected Goal: Reduction in pain sensation Outcome: Progressing as expected Problem: Respiratory Function - Impaired Goal: Able to cough effectively Outcome: Progressing as expected Goal: Adequate oxygenation Outcome: Progressing as expected Goal: Adequate work of breathing Outcome: Progressing as expected Problem: Skin integrity Impaired (Risk or Actual) Goal: Prevention of new skin breakdown Outcome: Progressing as expected Problem: Tissue Perfusion - Altered, Risk of Goal: Hemodynamically stable Outcome: Progressing as expected Problem: Venous Thromboembolism, (actual or risk of) Goal: Absence of venous thromboembolism (Risk) Outcome: Progressing as expected T Nuria Rodriguez RN [facility] 2024-05-24 22:59:19 Problem: Discharge Planning Goal: Adequate for discharge Outcome: Progressing as expected Goal: Effective communication Outcome: Progressing as expected Problem: Falls, Risk of Goal: Absence of falls Outcome: Progressing as expected Problem: Infection, Risk of or Actual Goal: Absence of infection Outcome: Progressing as expected Problem: Mental Status - Impaired, Risk of Goal: Mental status restored to baseline Outcome: Progressing as expected Goal: Absence of physical injury Outcome: Progressing as expected Problem: Pain Goal: Control of pain at or below patient's documented comfort goal Outcome: Progressing as expected Goal: Reduction in pain sensation Outcome: Progressing as expected Problem: Respiratory Function - Impaired Goal: Able to cough effectively Outcome: Progressing as expected Goal: Adequate oxygenation Outcome: Progressing as expected Goal: Adequate work of breathing Outcome: Progressing as expected Problem: Skin integrity Impaired (Risk or Actual) Goal: Prevention of new skin breakdown Outcome: Progressing as expected Problem: Tissue Perfusion - Altered, Risk of Goal: Hemodynamically stable Outcome: Progressing as expected Problem: Venous Thromboembolism, (actual or risk of) Goal: Absence of venous thromboembolism (Risk) Outcome: Progressing as expected Angeles Higgins RN [facility] 2024-05-24 09:21:02 Problem: Discharge Planning Goal: Adequate for discharge Outcome: Progressing as expected Goal: Effective communication Outcome: Progressing as expected Problem: Falls, Risk of Goal: Absence of falls Outcome: Progressing as expected Problem: Infection, Risk of or Actual Goal: Absence of infection Outcome: Progressing as expected Problem: Mental Status - Impaired, Risk of Goal: Mental status restored to baseline Outcome: Progressing as expected Goal: Absence of physical injury Outcome: Progressing as expected Problem: Pain Goal: Control of pain at or below patient's documented comfort goal Outcome: Progressing as expected Goal: Reduction in pain sensation Outcome: Progressing as expected Problem: Respiratory Function - Impaired Goal: Able to cough effectively Outcome: Progressing as expected Goal: Adequate oxygenation Outcome: Progressing as expected Goal: Adequate work of breathing Outcome: Progressing as expected Problem: Skin integrity Impaired (Risk or Actual) Goal: Prevention of new skin breakdown Outcome: Progressing as expected [facility] 2024-05-23 23:27:03 Problem: Discharge Planning Goal: Adequate for discharge Outcome: Progressing as expected Goal: Effective communication Outcome: Progressing as expected Problem: Falls, Risk of Goal: Absence of falls Outcome: Progressing as expected Problem: Infection, Risk of or Actual Goal: Absence of infection Outcome: Progressing as expected Problem: Mental Status - Impaired, Risk of Goal: Mental status restored to baseline Outcome: Progressing as expected Goal: Absence of physical injury Outcome: Progressing as expected Problem: Pain Goal: Control of pain at or below patient's documented comfort goal Outcome: Progressing as expected Goal: Reduction in pain sensation Outcome: Progressing as expected Problem: Respiratory Function - Impaired Goal: Able to cough effectively Outcome: Progressing as expected Goal: Adequate oxygenation Outcome: Progressing as expected Goal: Adequate work of breathing Outcome: Progressing as expected Problem: Skin integrity Impaired (Risk or Actual) Goal: Prevention of new skin breakdown Outcome: Progressing as expected Problem: Tissue Perfusion - Altered, Risk of Goal: Hemodynamically stable Outcome: Progressing as expected Problem: Venous Thromboembolism, (actual or risk of) Goal: Absence of venous thromboembolism (Risk) Outcome: Progressing as expected [facility] 2024-05-23 09:56:47 Problem: Discharge Planning Goal: Adequate for discharge Outcome: Progressing as expected Goal: Effective communication Outcome: Progressing as expected Problem: Falls, Risk of Goal: Absence of falls Outcome: Progressing as expected Problem: Infection, Risk of or Actual Goal: Absence of infection Outcome: Progressing as expected Problem: Mental Status - Impaired, Risk of Goal: Mental status restored to baseline Outcome: Progressing as expected Goal: Absence of physical injury Outcome: Progressing as expected Problem: Pain Goal: Control of pain at or below patient's documented comfort goal Outcome: Progressing as expected Goal: Reduction in pain sensation Outcome: Progressing as expected Problem: Respiratory Function - Impaired Goal: Able to cough effectively Outcome: Progressing as expected Goal: Adequate oxygenation Outcome: Progressing as expected Goal: Adequate work of breathing Outcome: Progressing as expected Problem: Skin integrity Impaired (Risk or Actual) Goal: Prevention of new skin breakdown Outcome: Progressing as expected [facility] 2024-05-23 09:15:25 Nurse Report Report given to Stacie DOZIER at [facility]. Chief complaint, assessment findings, infusion verify and orders reviewed. Sabine Albright RN [facility] Sabine Albright RN [facility] 2024-05-23 08:13:17 Problem: Discharge Planning Goal: Adequate for discharge Outcome: Progressing as expected Goal: Effective communication Outcome: Progressing as expected Problem: Falls, Risk of Goal: Absence of falls Outcome: Progressing as expected Problem: Infection, Risk of or Actual Goal: Absence of infection Outcome: Progressing as expected Problem: Mental Status - Impaired, Risk of Goal: Mental status restored to baseline Outcome: Progressing as expected Goal: Absence of physical injury Outcome: Progressing as expected Problem: Pain Goal: Control of pain at or below patient's documented comfort goal Outcome: Progressing as expected Goal: Reduction in pain sensation Outcome: Progressing as expected Problem: Respiratory Function - Impaired Goal: Able to cough effectively Outcome: Progressing as expected Goal: Adequate oxygenation Outcome: Progressing as expected Goal: Adequate work of breathing Outcome: Progressing as expected Problem: Skin integrity Impaired (Risk or Actual) Goal: Prevention of new skin breakdown Outcome: Progressing as expected Problem: Tissue Perfusion - Altered, Risk of Goal: Hemodynamically stable Outcome: Progressing as expected Problem: Venous Thromboembolism, (actual or risk of) Goal: Absence of venous thromboembolism (Risk) Outcome: Progressing as expected [facility] 2024-05-23 06:04:46 Summary: Azithromycin Dose Optimization Azithromycin Dose Optimization for Respiratory Tract Infections Per chart review, patient Mirella Quinonez ([id number]) meets criteria for azithromycin dose optimization. Please note that azithromycin has been dose optimized per [employer] approved policy 18.13 Azithromycin Dose Optimization for Respiratory Tract Infections Azithromycin 500 mg x 3 doses Please call with questions or concerns. Kevin Elias [facility], PharmD 05/23/2024 06:04 ES Elias [facility] 2024-05-23 01:15:17 Nurse Report Report given to Henri DOZIER. Chief complaint, assessment findings, infusion verify and orders reviewed. ES Tipton RN [facility] 2024-05-23 01:09:31 Pt ambulated to restroom without difficulty. Some CONWAY noted, but pt states that this is her baseline. Pt now sitting in bed, NAD, call light within reach. [facility] 2024-05-23 00:01:42 Lab notified of stat add on. [facility] 2024-05-22 23:42:52 Pt resting in bed, pending lab results. Call light within reach, VSS, NAD. [facility] 2024-05-22 21:48:17 CC: fever, body aches, and chills since 3 days ago. Medications: Nyquil this afternoon. [facility] Stephanie Fernández RN [facility] 2024-05-22 21:41:00 AdmissionCare Guideline: Sepsis (and Other Febrile Illness without Focal Infection) - INPT, Inpatient Based on the indications selected for the patient, the bed status of Inpatient was determined to be MET The following indications were selected as present at the time of evaluation of the patient: - Clinical Indications for Admission to Inpatient Care - Admission is indicated for 1 or more of the following: - Tachycardia that persists despite appropriate treatment (eg, volume repletion, treatment of pain, treatment of underlying cause) AdmissionCare documentation entered by: Emma Gallardo [facility], 28 edition, Copyright ? 2023 [facility] All Rights Reserved. [id number]:16:03-05:00 [facility] 2024-05-20 12:20:08 Multiple staff members have searched for patient throughout dept. Pt unable to be found. Called [phone] and left voicemail urging to call back. Sharon Irwin RN [facility] 2024-05-20 11:45:00 Patient has been called 3x pt not in lobby at this time. Attempted to call cell phone, number is not correct Judy Caraballo RN [facility] 2024-05-20 11:41:57 Patient called from the lobby with no response. Radha Cabrera RN [facility] 2024-05-20 10:11:57 Patient states "I woke up running a fever and my back is killing me." S/o states "we just moved here from [place] and we haven't been able to get any of her prescriptions. Patient c/o bilateral lower back pain. Patient states that she has degenerative disc disease. Extensive back surgery and chronic back pain. [facility] 2024-05-20 10:03:00 AdmissionCare Guideline: Urinary Tract Infection (UTI) - OBS, Observation Based on the indications selected for the patient, the bed status of Observation was determined to be MET The following indications were selected as present at the time of evaluation of the patient: - Observation Care Admission Criteria - Observation care is indicated for 1 or more of the following: - Fever (eg, when not masked by antipyretic medication such as acetaminophen or ibuprofen) - Heart rate greater than 100 beats per minute in adult or child age 6 years or older AdmissionCare documentation entered by: Jose Alberto Albert [facility], 28th edition, Copyright ? 2023 [facility], [facility] All Rights Reserved. [id number]:18-05:00 [facility]
[2025-01-07] MEDS ORDERED: ONDANSETRON 4 MG (ODT) TAB ONE (14:22)
[2025-01-07] MEDS ORDERED: methocarbamoL 750 MG TAB ONE (14:22)
[2025-01-07] MEDS ORDERED: MORPHINE 4 MG/ML SYR ONE (14:22)
--- NOTE | 2025-01-07 14:39 | RAD REPORT ---
EXAM: Thoracic Spine W/o Cont HISTORY:PAIN COMPARISON: None TECHNIQUE: Multiple contiguous axial images were obtained in a CT of the thoracic spine without contr ast. Sagittal and coronal reformats were performed. One or more of the following dose reduction techniques were used: Automated exposure control, adjustment of the mA and/or kV according to patient size, and/or iterative reconstruction. Unless otherwise specified, incidental findings do not require dedicated imaging follow-up. [id number]. FINDINGS: The vertebral bodies and intervertebral discs demonstrate normal height and alignment witho ut fracture or subluxation. . Scattered bridging osteophytes present. Mild diffuse disc height loss. . Cholecystomy. Mild cardiomegaly. Coronary artery calcifications. Partially imaged fusion hardware in the cervical spine. IMPRESSION: No evidence of acute osseous abnormality of the thoracic spine.
--- NOTE | 2025-01-07 15:06 | ER ---
Nurse's Notes [facility] Name: Zully Cruz Age: 54 yrs Sex: Female : 1970 Arrival Date: 01/07/2025 Time: 13:07 Bed 11 Private MD: Diagnosis: Pain in thoracic spine Presentation: 01/07 13:35 Chief complaint: Patient states: she leaned down to "get something out of a cupboard ap3 and herd a crunch" patient is complaining of pain to her mid back and side area that she rates a 10/10 on the pain scale. patient also states she took some norco that she had at home this morning. Coronavirus screen: At this time, the client does not indicate any symptoms associated with coronavirus-19. Ebola Screen: No symptoms or risks identified at this time. Initial Sepsis Screen: Does the patient meet any 2 criteria? No. Patient's initial sepsis screen is negative. Does the patient have a suspected source of infection? No. Patient's initial sepsis screen is negative. Risk Assessment: Do you want to hurt yourself or someone else? Patient reports no desire to harm self or others. Onset of symptoms was January 06, 2025. 13:35 Method Of Arrival: Ambulatory ap3 13:35 Acuity: REINA 4 ap3 Triage Assessment: 13:40 General: Appears in no apparent distress. Behavior is calm, cooperative, appropriate ap3 for age. Pain: Complains of pain in back, posterior aspect of right lateral abdomen and posterior aspect of left lateral abdomen Pain currently is 10 out of 10 on a pain scale. Neuro: Level of Consciousness is awake, alert, obeys commands, Oriented to person, place, time, situation, Speech is normal. Cardiovascular: Patient's skin is warm and dry. Respiratory: Airway is patent Respiratory effort is even, unlabored, Respiratory pattern is regular, symmetrical. Musculoskeletal: Range of motion: intact in all extremities. Historical: - Allergies: 13:38 No Known Allergies; ap3 - Home Meds: 13:38 Plavix Oral [Active]; Aspirin Oral [Active]; ap3 - PMHx: 13:38 BACK SURGERY IN MARCH; Degenerative disc disease; DENTAL CARIES; Hypercholesterolemia; ap3 - PSHx: 13:38 stent-09/2024 (DENTAL CARIES); back; Cholecystectomy; ap3 - Immunization history:: Client reports receiving the 2nd dose of the Covid vaccine, Flu vaccine is not up to date. - Infectious Disease History:: Denies. - Social history:: Smoking status: Patient reports the use of cigarette tobacco products, smokes one-half pack cigarettes per day, Patient uses street drugs, marijuana. Screenin:41 Abuse screen: Denies threats or abuse. Nutritional screening: No deficits noted. ap3 Tuberculosis screening: No symptoms or risk factors identified. 14:28 [facility] ED Fall Risk Assessment (Adult) History of falling in the last 3 months, hb including since admission Yes- single mechanical fall (1 pt) Confusion or Disorientation No (0 pts) Intoxicated or Sedated Yes (3 pts) Impaired Gait Yes (1 pt) Mobility Assist Device Used Yes (1 pt) Altered Elimination No (0 pt) Score/Fall Risk Level 3 or more points = High Risk Oriented to surroundings, Maintained a safe environment, Educated pt \\T\\ family on fall prevention, incl call for assistance when getting out of bed. Assessment: 14:28 General: Appears in no apparent distress. uncomfortable, Behavior is calm, cooperative. hb Pain: Pain currently is 10 out of 10 on a pain scale. Neuro: Level of Consciousness is awake, alert, obeys commands, Oriented to person, place, time, situation. Cardiovascular: Patient's skin is warm and dry. Respiratory: Respiratory effort is even, unlabored, Respiratory pattern is regular, symmetrical. GI: No signs and/or symptoms were reported involving the gastrointestinal system. : No signs and/or symptoms were reported regarding the genitourinary system. EENT: No signs and/or symptoms were reported regarding the EENT system. Derm: Skin is pink, warm \\T\\ dry. Musculoskeletal: Reports mid back pain. 15:15 Reassessment: Patient appears in no apparent distress at this time. Patient and/or hb family updated on plan of care and expected duration. Pain level reassessed. Patient is alert, oriented x 3, equal unlabored respirations, skin warm/dry/pink. Vital Signs: 13:35 BP 116 / 71; Pulse 89; Resp 19; Temp 98.8; Pulse Ox 95% on R/A; Weight 90.72 kg; Pain ap3 10/10; 13:35 Pain Scale: Adult ap3 ED Course: 13:09 Patient arrived in ED. mr 13:10 Nancy Curtis PA-C is PHCP. sb4 13:10 Manuel Gilliam MD is Attending Physician. sb4 13:38 Triage completed. ap3 13:41 Arm band placed on right wrist. ap3 13:51 Thoracic Spine WO Cont CT In Process Unspecified. EDMS 14:27 Aye Overton, RN is Primary Nurse. hb 14:28 Patient has correct armband on for positive identification. Bed in low position. Call hb light in reach. Side rails up X 1. Provided Education on: medications, tests, result times. 14:28 No provider procedures requiring assistance completed. Patient did not have IV access hb during this emergency room visit. Administered Medications: 14:27 Drug: morphine IM 4 mg IM once Route: IM; Site: left deltoid; hb 15:15 Follow up: Response: No adverse reaction hb 14:27 Drug: Ondansetron PO 4 mg PO once Route: PO; hb 15:15 Follow up: Response: No adverse reaction hb 14:27 Drug: Methocarbamol PO 750 mg PO once Route: PO; hb 15:15 Follow up: Response: No adverse reaction hb Medication: 14:28 VIS not applicable for this client. hb Outcome: 15:06 Discharge ordered by MD. sb4 15:39 Discharged to home ambulatory, ld1 15:39 Condition: stable 15:39 Discharge instructions given to patient, Instructed on discharge instructions, follow up and referral plans. medication usage, Demonstrated understanding of instructions, follow-up care, medications, Prescriptions given X 2, 15:39 Patient left the ED. ld1 Signatures: Dispatcher [employer] EDDE PatelSydni, [facility] Reg mr Aye Overton, RN TASIA Shey Villegas RN RN ap3 Johanne Sauceda RN RN ld1 Nancy Curtis PA-C PA-C sb4
--- NOTE | 2025-01-07 15:06 | EDPHYS ---
Physician Documentation [facility] Name: Zully Cruz Age: 54 yrs Sex: Female : 1970 Arrival Date: 01/07/2025 Time: 13:07 Bed 11 Private MD: ED Physician Manuel Gilliam HPI: 01/07 13:49 This 54 yrs old Female presents to ER via Ambulatory with complaints of Back Pain. sb4 13:49 The patient presents with pain that is acute, and decreased range of motion, and an sb4 injury. The symptoms are located in the thoracic area. Onset: The symptoms/episode began/occurred last night. The pain does not radiate. Associated signs and symptoms: The patient has no apparent associated signs or symptoms. The problem was sustained when bending over. Historical: - Allergies: 13:38 No Known Allergies; ap3 - Home Meds: 13:38 Plavix Oral [Active]; Aspirin Oral [Active]; ap3 - PMHx: 13:38 BACK SURGERY IN MARCH; Degenerative disc disease; DENTAL CARIES; Hypercholesterolemia; ap3 - PSHx: 13:38 stent-09/2024 (DENTAL CARIES); back; Cholecystectomy; ap3 - Immunization history:: Client reports receiving the 2nd dose of the Covid vaccine, Flu vaccine is not up to date. - Infectious Disease History:: Denies. - Social history:: Smoking status: Patient reports the use of cigarette tobacco products, smokes one-half pack cigarettes per day, Patient uses street drugs, marijuana. ROS: 14:25 Constitutional: Negative for fever, chills, and weight loss, sb4 14:25 Back: Positive for injury or acute deformity, decreased range of motion, pain at rest, pain with movement, of the thoracic area, 14:25 All other systems are negative, Exam: 14:25 Head/Face: Normocephalic, atraumatic. Eyes: Extra-ocular motions intact. Periorbital sb4 areas with no swelling, redness, or edema. ENT: Mucous membranes moist. Respiratory: No increased work of breathing, no retractions or nasal flaring. Skin: Warm, dry with normal turgor. Normal color with no rashes, no lesions, and no evidence of cellulitis. 14:25 Constitutional: The patient appears alert, awake, uncomfortable, 14:25 Back: pain, that is moderate, of the thoracic area, ROM is painless, painful, normal spinal alignment noted, CVA tenderness, is absent, vertebral tenderness, is not appreciated, muscle spasm, is not present, 14:25 Neuro: Motor: moves all fours, Sensation: is normal, Vital Signs: 13:35 BP 116 / 71; Pulse 89; Resp 19; Temp 98.8; Pulse Ox 95% on R/A; Weight 90.72 kg; Pain ap3 10/10; 13:35 Pain Scale: Adult ap3 MDM: 13:20 Medical Screening Exam initiated sb4 15:06 Data reviewed: vital signs, nurses notes, radiologic studies, and as a result, I will sb4 discharge patient. Counseling: I had a detailed discussion with the patient and/or guardian regarding the historical points, exam findings, and any diagnostic results supporting the discharge/admit diagnosis, radiology results, the need for outpatient follow up, for definitive care, to return to the emergency department if symptoms worsen or persist or if there are any questions or concerns that arise at home. 01/07 13:44 Order name: Thoracic Spine WO Cont CT; Complete Time: 14:40 sb4 Administered Medications: 14:27 Drug: morphine IM 4 mg IM once Route: IM; Site: left deltoid; hb 15:15 Follow up: Response: No adverse reaction hb 14:27 Drug: Ondansetron PO 4 mg PO once Route: PO; hb 15:15 Follow up: Response: No adverse reaction hb 14:27 Drug: Methocarbamol PO 750 mg PO once Route: PO; hb 15:15 Follow up: Response: No adverse reaction hb Disposition Summary: 01/07/25 15:06 Discharge Ordered Notes: Location: Home sb4 Problem: new sb4 Symptoms: have improved sb4 Condition: Stable sb4 Diagnosis - Pain in thoracic spine sb4 Followup: sb4 - With: Private Physician - When: 1 week - Reason: Recheck today's complaints, Re-evaluation by your physician Discharge Instructions: - Discharge Summary Sheet sb4 - Acute Back Pain, Adult sb4 - Thoracic Strain, [id number] sb4 Forms: - Medication Reconciliation Form sb4 - Antibiotic Education sb4 - Prescription Opioid Use sb4 - Patient Portal Instructions sb4 - Leadership Thank You Letter sb4 Prescriptions: - Prednisone 20 mg Oral Tablet - take 1 tablet ORAL route once daily for 5 days; 5 tablet; Refills: 0, Product sb4 Selection Permitted - Diclofenac Sodium 75 mg Oral Tablet Sustained Release - take 1 tablet ORAL route 2 times per day; 30 tablet; Refills: 0, Product sb4 Selection Permitted Signatures: Dispatcher [employer] Aye Willson, RN RN Shey Webb RN RN Nancy Arellano PA-C PA-C sb4 Corrections: (The following items were deleted from the chart) 13:44 13:44 Thoracic Spine WO [id number] ordered. EDMS EDMS
[2025-01-07 16:00] VITALS: BP 116/71; TEMP 98.8; O2SAT 95
== END 2025-01-07 15:39 | disposition home or self-care (01) ==
LOC: ER 13:07
DX: M54.6 Pain in thoracic spine (principal); F17.210 Nicotine dependence, cigarettes, uncomplicated
CPT/HCPCS: 72128; 96372; 99284; Q0162